=== PATIENT | female | born 2000 | race Caucasian/White ===

== ENCOUNTER 2018-12-18 11:36 | Emergency (ER) | payer OTHER ==
[2018-12-18 11:44] VITALS: BP 114/70; PULSE 62; TEMP 97.9; BMI 32.1
[2018-12-18] MEDS ORDERED: DEXAMETHASONE 4 MG TABLET (FP) PO ONE ×2 (12:17→12:27)
[2018-12-18] MEDS ORDERED: diphenhydrAMINE HCL 25 MG CAPSULE (FP) PO ONE ×2 (12:17→12:33)
--- NOTE | 2018-12-18 12:23 | PDOC ---
History of Present Illness - General Chief Complaint: Rash Stated Complaint: ALLERGIC REACTION Time Seen by Provider: 12/18/18 11:50 History Source: Patient Exam Limitations: No Limitations Past History - Travel Traveled outside of the country in the last 30 days: No Close contact w/someone who was outside of country & ill: No - Past Medical History Allergies/Adverse Reactions: Allergies Allergy/AdvReac Type Severity Reaction Status Date / Time No Known Allergies Allergy Verified 12/18/18 12:20 Home Medications: Ambulatory Orders Diphenhydramine HCl [Benadryl -] 25 mg PO Q8H #21 capsule 12/18/18 predniSONE [Deltasone -] 40 mg PO DAILY #8 tablet 12/18/18 COPD: No - Immunization History Immunization Up to Date: Yes - Suicide/Smoking/Psychosocial Hx Smoking History: Never smoked Hx Alcohol Use: No Drug/Substance Use Hx: No Review of Systems - Review of Systems Able to Perform ROS?: Yes Comments:: 12/18/18 12:16 CONSTITUTIONAL: Absent: fever, chills, diaphoresis, generalized weakness, malaise, loss of appetite MUSCULOSKELETAL: Absent: myalgia, arthralgia, joint swelling SKIN: Present: rash Absent: itching, pallor NEUROLOGIC: Absent: headache, focal weakness or paresthesias, dizziness, unsteady gait, seizure, mental status changes, bladder or bowel incontinence PSYCHIATRIC: Absent: anxiety, depression, suicidal or homicidal ideation, hallucinations. Is the patient limited [place] Citizen proficient: No *Physical Exam - Vital Signs Last Vital Signs Temp Pulse Resp BP Pulse Ox 97.9 F 62 18 114/70 100 12/18/18 11:41 12/18/18 11:41 12/18/18 11:41 12/18/18 11:41 12/18/18 11:41 - Physical Exam Comments: 12/18/18 12:20 GENERAL: The patient is awake, alert, and fully oriented, in no acute distress. HEAD: Normal with no signs of trauma. EYES: Pupils equal, round and reactive to light, extraocular movements intact, sclera anicteric, conjunctiva clear. EXTREMITIES: Normal range of motion, no edema. NEUROLOGICAL: Normal speech, normal gait. PSYCH: Normal mood, normal affect. SKIN: Erythematous purutic papules to the chest, back, arms and legs b/l. Warm, Dry, normal turgor. Medical Decision Making - Medical Decision Making 12/18/18 12:36 The patient is a 18 y/o F with no PMH who presents to the ER for a rash to her chest, back, arms and legs for two weeks. She states that the rash started on her back and chest and has progressively gotten worse. She has not taken any medications for her rash. Denies any new exposures. Denies SOB, diff breathing, wheezing, n/v/d. A/P: Allergic dermatitis On exam pt with pruritic papules to arms, legs, chest, back sparing the hands and feet Likely allergic in nature. Will treat with benardyl and prednisone Derm referral given DC home I discussed the physical exam findings, ancillary test results and final diagnoses with the patient. I answered all of the patient's questions. The patient was satisfied with the care received and felt comfortable with the discharge plan and treatment plan. The Patient agrees to follow up with the primary care physician/specialist within 24-72 hours. Return precautions were given. *DC/Admit/Observation/Transfer Diagnosis at time of Disposition: Allergic reaction Qualifiers: Encounter type: initial encounter Qualified Code(s): T78.40XA - Allergy, unspecified, initial encounter - Discharge Dispostion Disposition: HOME Condition at time of disposition: Stable Decision to Admit order: No - Prescriptions Prescriptions: Diphenhydramine HCl [Benadryl -] 25 mg PO Q8H #21 capsule predniSONE [Deltasone -] 40 mg PO DAILY #8 tablet - Referrals Referrals: Berna Elizondo MD [Staff Physician] - - Patient Instructions Printed Discharge Instructions: DI for General Allergic Reactions Additional Instructions: You are having an allergic reaction Take the steroids as directed starting tomorrow; you got your first dose today Take the Benadryl 25mg every 8 hours for the itch; do not drink or drive after taking the medication as it may make you drowsy Follow up with a ball racker in a week for further evaluation Return to the ER for any new or worsening symptoms Usted est teniendo carlos reaccin alrgica Eminence los esteroides tomeka se indica a partir de maana; usted recibi currie primera dosis hoy Eminence el Benadryl 25mg cada 8 horas para la picazn; no codi ni conduzca despus de terrell el medicamento, ya que puede causarle somnolencia Seguimiento con un dermatlogo en carlos semana para carlos evaluacin adicional Regreso a Urgencias para cualquier sntoma nuevo o que empeore Print Language: EQUATORIAL GUINEAN - Post Discharge Activity
[2018-12-18] MEDS ORDERED: DEXAMETHASONE 4 MG TABLET (FP) ONE (12:34)
== END 2018-12-18 12:43 | disposition home or self-care (01) ==
LOC: JERFT 11:36
DX: L23.9 Allergic contact dermatitis, unspecified cause (principal)
CPT/HCPCS: 99281-25